=== PATIENT | male | born 1945 | race Caucasian/White ===

== ENCOUNTER → 2017-03-16 | Outpatient (CLI) | payer OTHER, MEDICARE | LOC: BHFA 14:30 | PROVIDERS: ATTEND Internal Medicine Cardiovascular Disease | DX: I25.10 Atherosclerotic heart disease of native coronary artery without angina pectoris (principal); E78.5 Hyperlipidemia, unspecified ==

== ENCOUNTER 2017-08-08 13:17 | Observation (INO) | payer OTHER, MEDICARE ==
--- NOTE | 2017-08-08 13:28 | CPEKG ---
Heart Rate: 53 RR Interval: 1132 P-R Interval: 168 QRSD Interval: 134 QT Interval: 460 QTC Interval: 432 P [place]: 13 QRS [place]: -54 T Wave [place]: -15 EKG Severity - ABNORMAL ECG - EKG Impression: SINUS RHYTHM EKG Impression: RBBB AND LAFB EKG Impression: LEFT VENTRICULAR HYPERTROPHY Electronically Signed By: Gabriele Bajwa 08-Aug-2017 15:38:56
[2017-08-08 13:37] LABS: % IMMATURE GRANULYOCYTES 0.1 % (0.0-1.1); ABSOLUTE IMMATURE GRANULOCYTES 0.01 10^3/uL (0.00-0.10); ADD DIFF? NO; ADD MORPH? NO; ADD SCAN? NO; ATYPICAL LYMPHOCYTE FLAG 0 (0-99); FRAGMENT RBC FLAG 0 (0-99); HEMATOCRIT 42.4 % (40.0-51.0); LEFT SHIFT FLG 0 (0-99); LIPEMIA HEMOLYSIS FLAG 90 (0-99); MEAN CELL HEMOGLOBIN 32.1 pg (27.9-34.1); MEAN CELL HEMOGLOBIN CONCENTR. 35.4 g/dL (32.4-36.7); MEAN CELL VOLUME 90.6 fL (81.5-99.8); MEAN PLATELET VOLUME 10.4 fL (8.7-11.7); PLATELET CLUMPS FLAG 0 (0-99); PLATELET COUNT 236 10^3/uL (150-400); RED BLOOD CELL COUNT 4.68 10^6/uL (4.40-6.38); RED CELL DISTRIBUTION WIDTH 14.1 % (11.5-15.2)
[2017-08-08 13:48] LABS: ANION GAP 11 mEq/L (8-16); CALCIUM 9.5 mg/dL (8.5-10.4); CARBON DIOXIDE 24 mEq/l (22-31); CHLORIDE 100 mEq/L (97-110); CREATININE 1.3 mg/dL (0.7-1.3); GLOMERULAR FILTRATION RATE 55; GLUCOSE 97 mg/dL (70-100); POTASSIUM 4.6 mEq/L (3.5-5.2); SODIUM 135 mEq/L (134-144)
[2017-08-08 13:59] LABS: TROPONIN I < 0.012 ng/mL (0.000-0.034)
--- NOTE | 2017-08-08 14:09 | EDPHY ---
H & P Smoking Status: Former smoker Time Seen by Provider: 08/08/17 13:22 HPI/ROS: Chief complaint. Chest Pain HPI. Patient is a 71-year-old male with known coronary artery disease with previous KS an 7 stents presents by EMS with chest pain. For 3 days ago he was running on a treadmill and developed anterior chest pain that resolved with rest. Today again he was running on the treadmill and developed left anterior chest pain that radiated to his left shoulder. This occurred at 12:15 p.m. and resolved by about 12:40 p.m. this afternoon. He was sweating somewhat because of his exertion on the treadmill but he also felt clammy. His symptoms resolved with rest and nitroglycerin. He did not have change in his breathing. He describes his discomfort as"pain". He did take aspirin prior to arrival via EMS. Symptoms are somewhat similar to previous KS. Otherwise no recent illness including cough or fever. No unusual leg pain or swelling ROS Constitutional. no fever/chills, no weakness Eyes. no problems with vision ENT. no sore throat, no nasal drainage Cardiovascular. no chest pain Respiratory. no shortness of breath, no cough Abdominal. no abdominal pain, no nausea/vomiting, no diarrhea . no problems urinating MS. no calf pain/swelling, no neck/back pain, no joint pain Skin. Diaphoresis Lymph. no swollen glands Neuro. no headache, no dizziness, no difficulty walking or with speech (Gabriele Bajwa) Past Medical/Surgical History: KS, 7 stents, known right bundle branch block (Gabriele Bajwa) Social History: , nonsmoker, no alcohol (Gabriele Bajwa) Physical Exam: General Appearance: Alert well-developed male mild distress vital signs are stable Eyes: Pupils equal and round no pallor or injection. ENT, Mouth: Mucous membranes are moist. Respiratory: There are no retractions, lungs are clear to auscultation. Cardiovascular: Regular rate and rhythm. Gastrointestinal: Abdomen is soft and nontender, no masses, bowel sounds normal. Neurological: Awake and alert, sensory and motor exams grossly normal. Skin: Warm and dry, no rashes. Musculoskeletal: Neck is supple nontender. Extremities symmetrical, full range of motion. Psychiatric: Patient is oriented X 3, there is no agitation. (Gabriele Bajwa) Constitutional: Initial Vital Signs Temperature (C) 36.4 C 08/08/17 13:30 Heart Rate 57 L 08/08/17 13:30 Respiratory Rate 14 08/08/17 13:30 Blood Pressure 121/59 H 08/08/17 13:30 O2 Sat (%) 96 08/08/17 13:30 O2 Delivery Mode Room Air Allergies/Adverse Reactions: No Known Allergies Allergy (Verified 05/31/16 11:01) Home Medications: Medication Instructions Recorded Atorvastatin Calcium [Lipitor 20 80 mg PO DAILY 10/05/11 mg] Irbesartan [Avapro] 75 mg PO DAILY 10/05/11 Prasugrel HCl [Effient] 10 mg PO DAILY 10/05/11 Aspirin [Aspirin (OTC)] 325 mg PO DAILY 02/01/12 Cholecalciferol Vit D3 [Vitamin D 1,000 units PO DAILY 02/01/12 1000 units] Niacin ER [Niaspan 1000 mg (RX)] 1,000 PO DAILY 02/01/12 Nitroglycerin [Nitrostat 0.4 mg] 0.4 mg SL PRN PRN 02/01/12 Omeprazole [Prilosec 20 mg] 20 mg PO DAILY 02/01/12 Medical Decision Making - Diagnostics EKG Interpretation: EKG interpreted by me shows normal sinus rhythm with normal interval. There is left axis deviation. QRS shows right bundle branch block and left anterior fascicular block. There is LVH by voltage criteria. T-wave inversions in anterior septal leads as well as inferior leads. No acute ST elevations or depressions. No arrhythmia. The rate is 53 No significant change from previous EKG in July 2014 (Gabriele Bajwa) Imaging Results: Imaging Impressions Chest X-Ray 08/08/17 13:32 Impression: 1. Query airways disease with no superimposed acute abnormality identified. 2. See above report for additional findings. Chest x-ray reviewed by me shows no acute findings (Gabriele Bajwa) Procedures: IV normal saline, monitor (Gabriele Bajwa) ED Course/Re-evaluation: Re-evaluation 2:40 p.m.. Patient is stable. He and I discussed laboratory, EKG , imaging study evaluation. I have recommended admission to the patient however he would like to be treated as an outpatient with close follow-up with Cardiology. The patient agrees to waiting for a 3 hour troponin level. Consulted and discussed case with Dr. Quigley from Cardiology. She will arrange follow-up in the next 1-2 days for this patient. She agrees with current treatment plan and management (Gabriele Bajwa) Differential Diagnosis: This appears to be angina that the patient is having however it does not really appear to be crescendo angina in that the patient is pushing himself more than he had previously as he is trying to increase his time an effort on the treadmill. He finds after 2 to have miles on the treadmill he does experience is some chest discomfort. However activities that he normally does without discomfort continue not to cause him discomfort. The workup is normal. He wishes to be treated as an outpatient and has been warned not to push himself on the treadmill prior to cardiac evaluation in the next few days and to return for worsening chest discomfort or trouble breathing. (Gabriele Bajwa) Other Provider: The patient was turned over to me by Dr. Bajwa at shift change pending a repeat troponin. The patient's 2nd troponin came back elevated. The plan had been to discharge the patient home if it was negative and to admit the patient to the hospitalist if it was positive. The patient and his have been informed of the results of the slightly elevated troponin and need for inpatient hospitalization. Consultation is made with the hospitalist service for admission. I discussed the case with Dr. Toro from Internal Medicine. A notify Dr. Vaishnavi Quigley of of the patient's admission to the hospital. He continues to have no ongoing chest pain. He will be admitted to the PCU for serial enzyme testing and additional risk stratification. (Wojciech Greenberg) - Data Points Laboratory Results: Laboratory Results 08/08/17 13:20 08/08/17 13:20 08/08/17 08/08/17 08/08/17 15:30 13:20 13:20 WBC 6.76 10^3/uL 10^3/uL (3.80-9.50) RBC 4.68 10^6/uL 10^6/uL (4.40-6.38) Hgb 15.0 g/dL g/dL (13.7-17.5) Hct 42.4 % % (40.0-51.0) MCV 90.6 fL fL (81.5-99.8) MCH 32.1 pg pg (27.9-34.1) MCHC 35.4 g/dL g/dL (32.4-36.7) RDW 14.1 % % (11.5-15.2) Plt Count 236 10^3/uL 10^3/uL (150-400) MPV 10.4 fL fL (8.7-11.7) Neut % (Auto) 55.6 % % (39.3-74.2) Lymph % (Auto) 33.6 % % (15.0-45.0) [place] % (Auto) 7.5 % % (4.5-13.0) Eos % (Auto) 2.5 % % (0.6-7.6) Baso % (Auto) 0.7 % % (0.3-1.7) Nucleat RBC Rel Count 0.0 % % (0.0-0.2) Absolute Neuts (auto) 3.75 10^3/uL 10^3/uL (1.70-6.50) Absolute Lymphs (auto) 2.27 10^3/uL 10^3/uL (1.00-3.00) Absolute Monos (auto) 0.51 10^3/uL 10^3/uL (0.30-0.80) Absolute Eos (auto) 0.17 10^3/uL 10^3/uL (0.03-0.40) Absolute Basos (auto) 0.05 10^3/uL 10^3/uL (0.02-0.10) Absolute Nucleated RBC 0.00 10^3/uL 10^3/uL (0-0.01) Immature Gran % 0.1 % % (0.0-1.1) Immature Gran # 0.01 10^3/uL 10^3/uL (0.00-0.10) Sodium 135 mEq/L mEq/L (134-144) Potassium 4.6 mEq/L mEq/L (3.5-5.2) Chloride 100 mEq/L mEq/L (97-110) Carbon Dioxide 24 mEq/l mEq/l (22-31) Anion Gap 11 mEq/L mEq/L (8-16) BUN 18 mg/dL mg/dL (7-23) Creatinine 1.3 mg/dL mg/dL (0.7-1.3) Estimated GFR 55 Glucose 97 mg/dL mg/dL (70-100) Calcium 9.5 mg/dL mg/dL (8.5-10.4) Troponin I 0.043 ng/mL H ng/mL < 0.012 ng/mL ng/mL (0.000-0.034) (0.000-0.034) Departure - Departure Disposition: [facility] Inpatient Acute Clinical Impression: Chest pain Qualifiers: Chest pain type: unspecified Qualified Code(s): R07.9 - Chest pain, unspecified Condition: Good Instructions: Chest Pain (ED)
[2017-08-08 16:04] LABS: TROPONIN I 0.043 ng/mL (0.000-0.034)
[2017-08-08] MEDS ORDERED: ONDANSETRON 4 MG/2 ML VIAL IVP PRN (18:50)
[2017-08-08] MEDS ORDERED: ACETAMINOPHEN 325 MG TAB PO PRN (18:50)
[2017-08-08] MEDS ORDERED: ONDANSETRON DISINTEGRATING 4 MG TAB PO PRN (18:50)
[2017-08-08] MEDS ORDERED: ZOLPIDEM TARTRATE 5 MG TAB PO PRN (18:50)
[2017-08-08] MEDS ORDERED: NITROGLYCERIN 0.4 MG BTL SL PRN (19:12)
--- NOTE | 2017-08-08 20:06 | GHP ---
[f rep st] HISTORY AND PHYSICAL DATE OF ADMISSION: 08/08/2017 CHIEF COMPLAINT: Chest pain. HPI: The patient is a 71-year-old white male with a history of coronary artery disease. His last in tervention was RCA stent in 2011. He decided several weeks ago to start exercising more vigorously. He got on a treadmill at his local apartment complex, and has been gradually working up to harder an d harder exercise. A couple of days ago he jogged for 2.5 miles [place] he got a sh talisha pain in his lower substernal area. He got off the treadmill and went back to his apartment, [facility] is only a couple of hundred yards ago, and by the time he got there the pain was gone. He had no a ssociated symptoms. Today at the 2-3/4 mile [place] of jog[place] he had a sharper pain in his lower subst ernal area. He thinks his previous cardiac chest pain involved the upper sternal area more than the lower. Nevertheless, he felt like he had to sit down for a few minutes at the gym. He then went thelma home and continued to have a low grade pain. He took a sublingual nitroglycerin tablet for the fir st time in a few years. That did seem to help the pain, but it made him feel clammy and lightheaded. After thinking about it further, he decided to present to the hospital. By the time he arrived her e, he did not have any pain. He appeared stable in the emergency department, and his initial troponi n was low at 0.012. A 2nd troponin, however, was slightly more elevated at 0.043, and the decision w as made to admit him for observation and possible further evaluation in the morning. He currently hollis s no complaints. PAST MEDICAL HISTORY: Significant for coronary artery disease with myocardial infarction complicated by heart failure and intubation in the ICU in 2010. He had repeat stents in the RCA in 2011. MEDICATIONS: Aspirin daily, atorvastatin daily, irbesartan daily, niacin daily, omeprazole daily. H e tells me that Effient was discontinued in March. SOCIAL HISTORY: He lives at home with his . One daughter in [place], and a new grandchild born 6 months ago. He quit smoking in 1979. 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 He has 1 glass of wine per evening. FAMILY HISTORY: Noncontributory in this patient with known heart disease. REVIEW OF SYSTEMS: 10-point review of systems is negative except for indigestion if he does not take his omeprazole, which he has been on for a long time, but no recent symptoms in that regard. PHYSICAL EXAMINATION: GENERAL: He is a well-developed white male, who appears his stated age. VITAL SIGNS: Blood pressure 121/59, heart rate 57, oxygen saturation 96% on room air, and he is afeb rile. EYES: Pupils equal, round, reactive to light. Conjunctivae are pink. THROAT: MOUTH: OROPHARYNX: Benign. NECK: Supple without adenopathy or thyromegaly. Carotids are 2+ bilaterally. LUNGS: Clear. HEART: Regular without murmur. ABDOMEN: Soft, nontender, without masses or bruits. Bowel sounds are normoactive. EXTREMITIES: No edema. Electrocardiogram showed sinus rhythm with right bundle branch block and left anterior fascicular blo ck. His heart rate is 53. This is unchanged from a previous EKG in 2014. Chest x-ray is unremarkab le. I reviewed his EKG tracing and his chest x-ray personally. His CBC is normal. His electrolytes are normal. His creatinine is 1.3, which is just slightly highe r than his baseline of 1.1. Troponin was 0.012, and a 2nd troponin a few hours later was 0.043. Thi rd troponin has yet to be drawn. IMPRESSION: 1. Chest pain, rule out acute coronary syndrome. He has a mildly elevated troponin on his 2nd test of the day, and does have new exertional chest pain, albeit not until he had jogged 2-1/2 miles or mo re. He had no associated symptoms. His EKG is unchanged from before. He feels good at this time. There is certainly no indication for acute intervention. We will check a 3rd troponin, and a decisio n will have to be made tomorrow morning regarding how aggressively to look into this. 2. Mildly increased creatinine. Recheck in the a.m. 3. Known coronary artery disease. /[id number]/MODL
[2017-08-09 05:09] LABS: ANION GAP 9 mEq/L (8-16); CARBON DIOXIDE 20 mEq/l (22-31); CHLORIDE 106 mEq/L (97-110); CREATININE 1.1 mg/dL (0.7-1.3); GLOMERULAR FILTRATION RATE > 60; GLUCOSE 76 mg/dL (70-100); POTASSIUM 4.3 mEq/L (3.5-5.2); SODIUM 135 mEq/L (134-144)
[2017-08-09 05:17] LABS: TROPONIN I 0.043 ng/mL (0.000-0.034)
[2017-08-09] MEDS ORDERED: ASPIRIN EC 81 MG TAB PO SCH (09:00)
[2017-08-09] MEDS ORDERED: PANTOPRAZOLE SODIUM 40 MG TAB PO SCH (09:00)
[2017-08-09] MEDS ORDERED: MULTIVITAMINS 1 EACH TAB PO SCH (09:00)
[2017-08-09] MEDS ORDERED: IRBESARTAN 75 MG TAB PO SCH (09:00)
[2017-08-09] MEDS ORDERED: NIACIN ER 1000 MG TAB.ER PO SCH (09:00)
[2017-08-09] MEDS ORDERED: ATORVASTATIN CALCIUM 40 MG TAB PO SCH (09:00)
--- NOTE | 2017-08-09 11:12 | ASMTCMCOM ---
CM Note CM Note Notes: 08/09/2017 Case Management Note Reviewed chart. No case management needs identified d/t pt activity levels prior to admission, lack of PT or OT eval orders and supportive family. Case Management d/c poc: Home independent with family support when medically stable. Case Management available if needs change. Date Signed: 08/09/2017 11:12 AM Electronically Signed By:Yue Gatica RN
--- NOTE | 2017-08-09 13:48 | GCON ---
[f rep st] CONSULTATION CARDIOLOGY CONSULTATION DATE OF CONSULTATION: 08/09/2017 REFERRING PHYSICIAN: Damien Toro MD REASON FOR CONSULTATION: 1. Coronary artery disease with a history of prior percutaneous coronary intervention procedures. 2. Chest pain. 3. Elevated troponin. HISTORY: The patient is a 71-year-old male who is typically followed by my partner, Dr. Niraj Sánchez . He has a history of coronary artery disease with PCI procedures performed on the left anterior jordyn cending in 2003 and again in 2006. He also has had PCI procedures performed on the RCA in 2010 and . He has been stable over the past 5 years without significant symptoms, until approximately 7-10 days ago. He noticed some chest discomfort with exertion when he was jogging. His 1st episode reso lved fairly quickly after cessation of physical activity. Yesterday, he went running again and exper ienced a recurrence of sharp, lower substernal chest discomfort. This was somewhat different than hi s previous anginal symptoms. His chest discomfort persisted for at least 20-30 minutes, and responde d partially to a single sublingual nitroglycerin. Based on his prior history and symptoms, his summoned paramedics and he was transported to [facility]. By the time of his arriv al, his symptoms had subsided. His ECG demonstrated a right bundle branch block and a left anterior fascicular block with associated repolarization abnormalities. His initial troponin was normal. He was placed on PCU for observation. Subsequent troponin levels came back as 0.043, 0.077, and 0.043. He has not had any recurrent chest discomfort. PAST MEDICAL HISTORY: Notable for his history of CAD as described above. He had a right ventricular infarction secondary to occlusion of a RCA marginal branch during his PCI procedure in 2010. That e vent required intubation and support with an intra-aortic balloon pump. He has a history of hyperlip idemia and hypertension. Additional medical issues include BPH with bladder outlet obstructive sympt oms, erectile dysfunction, seizure history, skin cancer, and sleep apnea. PAST SURGICAL HISTORY: Includes repair of a biceps tendon tear, and vasectomy. FAMILY HISTORY: Noncontributory. SOCIAL HISTORY: He is . His is with him in his room today. They have an adult daughter who lives an [place]. He is a former smoker, having stopped in 1979. He drinks 1 glass of wine each evening. 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 REVIEW OF SYSTEMS: Apart from the symptoms mentioned in the History of Present Illness, a 10-point r eview was negative. PHYSICAL EXAMINATION: VITAL SIGNS: Heart rate in the 70s with sinus rhythm on the monitor. Blood p ressure 131/66. GENERAL: A well-developed, well-nourished male, in no acute distress. He is alert and oriented x3. HEAD AND NECK: No scleral icterus. Mucous membranes moist. Carotid pulses 2+ wit hout bruits. CHEST: Lung lima clear to auscultation bilaterally. CARDIAC: Regular rate and rhyt hm with a normal S1 and S2. No murmur or gallop. ABDOMEN: Soft, nondistended, nontender, with norm oactive bowel sounds. EXTREMITIES: 2+ pulses with no peripheral edema. An Ben test on the right wrist was normal at less than 5 seconds. LABORATORY STUDIES: Troponin levels, as mentioned in the History of Present Illness. His CBC demons trated a white blood cell count of 6.76 with hemoglobin and hematocrit of 15.0 and 42.4. Platelet co unt 236,000. Sodium 135, potassium 4.3, BUN and creatinine 17 and 1.1. ASSESSMENT: This is a 71-year-old male with a history of coronary artery disease and prior percutane ous coronary intervention procedures involving the left anterior descending and right coronary artery . He presents with recurrent chest discomfort precipitated by exercise. He has had a minimal tropon in elevation. He has not had any arrhythmias or evidence of congestive heart failure. His left vent ricular function is known to be preserved. A nuclear stress test performed in January of 2016 was norm al without evidence of ischemia or infarction. PLAN: I had a long discussion with the patient and his about his history, his current symptoms, and laboratory findings. Options for a conservative approach with a nuclear stress test versus proc eeding directly to cardiac catheterization were outlined. Because of his history of a complicated pr ocedure in 2010, entailing a right ventricular infarction, he would prefer to proceed cautiously. In addition, if he does require coronary angiography on the basis of his stress test, he would prefer, if possible, for Dr. Sánchez to perform that procedure. A nuclear stress test has been requested. Bravo nuno diagnostic and therapeutic decisions await the outcome of that study. /[id number]/MODL
--- NOTE | 2017-08-09 14:47 | PDCARST ---
CAR Stress Test Results Type of Stress Test: Nuclear TM stress test Indication: chest pain Description of Procedure: After informed consent was obtained, pt was exercised according to Samuel Protocol. Monitoring was performed with standard stress cell tester electrode placement. Vital signs were monitored according to protocol throughout the procedure. STRESS EKG AND HEMODYNAMIC DATA. Exercise time:7:48 min. This is equivalent to: 8.8 METS. Resting heart rate: 55 bpm. Resting blood pressure: 120/70 mmHg. Resting O2 saturation: 93%. Peak heart rate: 128 bpm. This is 86 % of age predicted maximum heart rate response. Peak blood pressure: 180/80 mmHg. Exercise O2: 96 % (delayed reading for 2 minutes due to equipment malfunction). Arrhythmias: None. Reason for termination: The test was stopped due to maximal effort. Symptoms: The patient experienced no typical symptoms of angina during stress or recovery. STRESS TEST ANALYSIS. Baseline ECG: SR with RBBB and LAFB. Stress ECG: No ischemic changes. Rhythm: No arrhythmias noted during exercise and recovery. Blood pressure: Normal blood pressure response to exercise. Exercise tolerance: The patient has normal exercise tolerance adjusted for age and gender. Symptoms: No exercise induced symptoms. Impression: Stress ECG negative for ischemia. The Candelario Treadmill Score is + 7 consistent with low cardiovascular risk (<1% annual mortality). Conclusion: Await nuclear images.
--- NOTE | 2017-08-09 17:11 | CPEKG ---
Heart Rate: 54 RR Interval: 1111 P-R Interval: 160 QRSD Interval: 134 QT Interval: 464 QTC Interval: 440 P [place]: 12 QRS [place]: -57 T Wave [place]: -12 EKG Severity - ABNORMAL ECG - EKG Impression: SINUS RHYTHM EKG Impression: RBBB Electronically Signed For: Noam Joiner 09-Aug-2017 17:12:08
[2017-08-09 17:28] VITALS: BP 141/76; PULSE 55; RESP 20; TEMP 97.5; O2SAT 96
--- NOTE | 2017-08-09 21:29 | PDDCSUM ---
Discharge Summary Discharge Summary: Discharge Diagnoses: 1. Acute chest pain 2. Abnormal troponin 3. Chronic coronary artery disease Consultations: Cardiology Studies: Negative nuc stress test Chief Complaint: Acute chest pain Subjective: Feels well at time of discharge, no recurrence of symptoms Physical exam: Lungs are CTA, heart RRR, no MRG, AAOx3, no tenderness over sternum, SBP 110, HR 60 Hospital Course: Mr. Lim p/w exertional chest pain, likely 2/2 deconditioning. His stress test ruled out obstructive CAD/angina, and his ddimer ruled out PE. He has known CAD and is in the process of increasing his physical exercise, and I suspect that he is somewhat deconditioned and experienced the discomfort of getting reconditioned. His troponin was marginally elevated, potentially 2/2 supply/demand mismatch, but, as noted above, his nuc stress test did not demonstrate any large vessel reversible ischemia. 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 He was offered the option of cath, but, given his past procedural issues, he prefers to not undergo cath at this time. Discharge medications: Please see official DC med rec sheet, no changes were made. Discharge Instructions: Please follow-up with your primary press department manager.
== END 2017-08-09 18:33 | disposition home or self-care (01) ==
LOC: EDUNIT# → INTOOBSV 16:21 → F2W 17:20
PROVIDERS: ADMIT Internal Medicine; ATTEND Internal Medicine
DX: R07.89 Other chest pain (principal); I25.10 Atherosclerotic heart disease of native coronary artery without angina pectoris; I25.2 Old myocardial infarction; I45.10 Unspecified right bundle-branch block; Z95.5 Presence of coronary angioplasty implant and graft; Z79.82 Long term (current) use of aspirin; Z87.891 Personal history of nicotine dependence
CPT/HCPCS: 71020; 78452; 93005; 93017; A9500; G0378

== ENCOUNTER 2018-06-13 11:55 | Emergency (ER) | payer OTHER, MEDICARE ==
[2018-06-13] MEDS ORDERED: NS 500 ML IV ONE (12:16)
--- NOTE | 2018-06-13 12:26 | CPEKG ---
Heart Rate: 54 RR Interval: 1111 P-R Interval: 192 QRSD Interval: 138 QT Interval: 436 QTC Interval: 414 P [place]: 33 QRS [place]: -58 T Wave [place]: -4 EKG Severity - ABNORMAL ECG - EKG Impression: SINUS RHYTHM EKG Impression: RBBB AND LAFB EKG Impression: LEFT VENTRICULAR HYPERTROPHY Electronically Signed By: Brandy Cabrera 13-Jun-2018 15:11:29
--- NOTE | 2018-06-13 12:51 | EDPHY ---
H & P Time Seen by Provider: 06/13/18 12:17 HPI/ROS: HPI Possible black out, unsteady on his feet. 72-year-old male by private vehicle with his . This patient has a long history of coronary artery disease. He reports that he was driving his car with his . He reports that he had a fraction of a second episode of what he describes as a "brain jolt". He does not think he blacked out but after this he had a sensation of his head feeling heavy. He then got to his grandchildren's house and was pushing 1 of them around in a stroller and he felt as if his head was heavy and he needed to concentrate on his walking and balance. He is now feeling better. ROS: Constitutional: No fever, no chills. As above. Eyes: No discharge. No changes in vision. ENT: No sore throat. No nasal congestion or rhinorrhea. Respiratory: No cough. No shortness of breath. Cardiac: No chest pain, no palpitations. Gastrointestinal: No abdominal pain, no vomiting, no diarrhea. Genitourinary: No hematuria. No dysuria or increased frequency with urination. Musculoskeletal: No back pain. No neck pain. No myalgias or arthralgias. Skin: No rashes. Neurological: No headache. No focal weakness or altered sensation. Past medical history: [place], 7 stents placed, right bundle branch block, brain hematoma with history of seizure, biceps tendon surgery. His information assurance analyst is Dr. Niraj Sánchez. Social history: Here with his . Nonsmoker. No alcohol. Physical Exam: General Appearance: Alert, no distress. This patient is responding to questions appropriately and in full sentences. This patient appears well- hydrated and well-nourished. Eyes: Pupils equal and round and reactive to light at 3-2 mm bilaterally, no pallor or injection. No lid edema, erythema or injection. No nystagmus. No photophobia. ENT, Mouth: Mucous membranes are moist. The pharyngeal tissues are unremarkable. No edema or swelling. No asymmetry suggestive of abscess. No erythema or exudates. No tongue lacerations or abrasions. Respiratory: There are no retractions, lungs are clear to auscultation with good air movement bilaterally. Cardiovascular: Regular rate and rhythm. No murmur. Gastrointestinal: Abdomen is soft and nontender, no masses, bowel sounds normal. No focal tenderness at McBurney's point. No Jalloh sign. Neurological: Motor sensory function is grossly intact. Cranial nerves are normal. Cerebellar function normal. Gait is normal. Skin: Warm and dry, no rashes. Musculoskeletal: Neck is supple and nontender. Extremities are symmetrical. All joints range without pain or impingement. Psychiatric: No agitation. No depression. Database: EKG: EKG time is 12:24 p.m.; EKG shows a narrow complex normal sinus rhythm with a ventricular rate of 54. Right bundle branch block and left anterior fascicular block noted. Left ventricular hypertrophy noted. The [place], QT intervals are within normal limits. There are no ST-T wave changes indicative of ischemic or injury pattern. No evidence of right heart strain. EKG compared to prior study from 08/08/2017. No significant changes. Interpreted by me. Imaging: CT head without contrast: Negative. Results were discussed with staff radiologist Dr. Efra Puga. Procedures: Emergency department course: Triage vital signs reviewed. He is bradycardic with a rate of 54. Mildly hypertensive. Vital signs otherwise normal. IV was placed. He was started on IV normal saline with 500 cc to be given over the next hour. 1:00 p.m., patient re-evaluated. Resting comfortably at this time. He has no complaints. Repeat neurologic Assessment is nonfocal. 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 1:40 p.m., the patient was re-evaluated. I discussed the results of his blood work with him and his . Repeat neurologic Assessment is nonfocal. This time he feels like he is comfortable enough to go home but his is concerned about his prior history of a subdural hematoma. We will obtain CT imaging of the brain. He endorses this. He feels that if this is unremarkable he would like to go home. 2:20 p.m., the patient was re-evaluated. He is resting comfortably at this time. Repeat neurologic Assessment is nonfocal. Results of his CT scan of his head was discussed with him and his . He is requesting discharge at this time. I feel this is reasonable. I feel that CVA, cardiac etiology of syncope are unlikely. Follow-up and return to emergency department precautions have been thoroughly reviewed with him and his . They live near the hospital and can easily return here if necessary. All of her questions were answered. The patient was discharged home in good condition. Differential Diagnosis: The differential diagnosis on this patient includes but is not limited to transient migraine headache syndrome. Subdural hematoma, CVA, TIA, subarachnoid hemorrhage, cavernous sinus thrombosis, sagittal sinus thrombosis, cardiac arrhythmia unlikely. This represents a partial list of diagnoses considered. These considerations are based on history, physical exam, past history, reassessment and diagnostic testing. Smoking Status: Former smoker Constitutional: Initial Vital Signs Temperature (C) 36.5 C 06/13/18 11:59 Heart Rate 59 L 06/13/18 11:59 Respiratory Rate 18 06/13/18 11:59 Blood Pressure 147/81 H 06/13/18 11:59 O2 Sat (%) 97 06/13/18 11:59 O2 Delivery Mode Room Air Allergies/Adverse Reactions: No Known Allergies Allergy (Verified 06/13/18 11:56) Home Medications: Medication Instructions Recorded Atorvastatin Calcium [Lipitor 20 80 mg PO DAILY 10/05/11 mg (*)] Irbesartan [Avapro] 75 mg PO DAILY 10/05/11 Niacin ER [Niaspan 1000 mg (*)] 1,000 mg PO DAILY 02/01/12 Nitroglycerin [Nitrostat 0.4 mg 0.4 mg SL PRN PRN 02/01/12 (*)] Omeprazole [Prilosec 20 mg] 20 mg PO DAILY 02/01/12 Aspirin EC [Aspirin EC 81 mg (*)] 162 mg PO DAILY 08/08/17 Multivitamins [Multivitamin (*)] 1 each PO DAILY 08/08/17 Ranexa 06/13/18 Medical Decision Making - Data Points Laboratory Results: Laboratory Results 06/13/18 12:55 06/13/18 12:55 Medications Given: Discontinued Medications Sodium Chloride (Ns) 500 mls @ 1,000 mls/hr IV EDNOW ONE PRN Reason: Protocol Stop: 06/13/18 12:45 Last Admin: 06/13/18 13:03 Dose: 500 mls Point of Care Test Results: Chemistry 06/13/18 13:01 POC Troponin I 0.00 ng/mL ng/mL (0.00-0.08) Departure - Departure Disposition: Home, Routine, Self-Care Clinical Impression: Headache Condition: Good Instructions: Migraine Headache (ED) Additional Instructions: Read and follow provided instructions. Follow-up with your primary care physician tomorrow for re-evaluation as discussed. Keep well hydrated. Get plenty of rest today. No strenuous activity until you have been cleared by your primary care physician. Continue taking her medication as prescribed. Return to the emergency department for return of symptoms, difficulty walking, any loss of sensation or weakness in your extremities, worsening headache or other serious concerns. Referrals: Red Dwyer MD [Primary Care Provider] - As per Instructions
[2018-06-13 13:08] LABS: PLATELET COUNT 227 10^3/uL (150-400)
[2018-06-13 13:16] LABS: INR 0.91 (0.83-1.16); PROTIME(PATIENT) 12.5 SEC (12.0-15.0)
[2018-06-13 15:09] VITALS: BP 127/76
== END 2018-06-13 15:06 | disposition home or self-care (01) ==
DX: R51 Headache (principal); R26.81 Unsteadiness on feet; E86.9 Volume depletion, unspecified; I25.10 Atherosclerotic heart disease of native coronary artery without angina pectoris
CPT/HCPCS: 84484-PO

== ENCOUNTER → 2018-07-26 | Outpatient (CLI) | payer OTHER, MEDICARE ==
--- NOTE | 2018-07-26 12:23 | CPEEG ---
DATE OF STUDY: 07/26/2018 INTERPRETATION: Normal EEG during wakefulness and sleep. There were no potentially epileptogenic ab normalities present in the recording. REPORT: This EEG contains 10 Hz alpha activity over the posterior head regions during maximal alertn ess. There is no abnormal activation at rest, during photic stimulation or hyperventilation. The martina malcolm became drowsy and fell asleep during the study. There was no abnormal activation during drowsi ness, sleep, or during times of arousal. /[id number]/MODL
== END ==
LOC: EDSEX → FCPNEURO 07:52 → MERGE 08:00
PROVIDERS: ATTEND Physician Assistant Medical
DX: R41.89 Other symptoms and signs involving cognitive functions and awareness (principal); G43.109 Migraine with aura, not intractable, without status migrainosus

== ENCOUNTER → 2018-08-01 | Outpatient (CLI) | payer OTHER, MEDICARE ==
[~2018-08-01] MED LIST: GADOBUTROL 10 ML VIAL IVP ONE
== END ==
LOC: FIMAGING 12:46
PROVIDERS: ATTEND Physician Assistant Medical
DX: R90.89 Other abnormal findings on diagnostic imaging of central nervous system (principal); G43.109 Migraine with aura, not intractable, without status migrainosus; R41.89 Other symptoms and signs involving cognitive functions and awareness; C44.90 Unspecified malignant neoplasm of skin, unspecified; Z87.820 Personal history of traumatic brain injury
CPT/HCPCS: 70553; A9585